=== PATIENT | male | born 1960 | race African-American/Black ===

== ENCOUNTER 2020-03-17 13:23 | Outpatient (REF) | payer MEDICAID, SELFPAY | END 2020-03-17 13:24 | disposition home or self-care (01) | LOC: HO.LAB 13:23 | PROVIDERS: Visit Provider Internal Medicine | DX: Z20.822 Contact with and (suspected) exposure to COVID-19 (principal) | CPT/HCPCS: 36415; C9803; U0003 ==

== ENCOUNTER 2020-03-31 13:35 | Outpatient (REF) | payer MEDICAID, SELFPAY | END 2020-03-31 13:36 | disposition home or self-care (01) | LOC: HO.LAB 13:35 | PROVIDERS: Visit Provider Internal Medicine | DX: Z20.822 Contact with and (suspected) exposure to COVID-19 (principal) | CPT/HCPCS: 36415; C9803; U0003 ==

== ENCOUNTER 2023-05-03 13:50 | Outpatient (REF) | payer MEDICAID, SELFPAY ==
[2023-05-03 16:42] LABS: Anion Gap 15 (12-20); Blood Urea Nitrogen 18 mg/dL (9-16); Calcium 9.4 mg/dL (8.4-10.2); Carbon Dioxide 25 mmol/L (22-29); Chloride 108 mmol/L (96-108); Estimated Glomerular Filt Rate 47; Glucose Random 94 mg/dL (60-115); Potassium 4.2 mmol/L (3.3-5.1); Sodium 144 mmol/L (135-145)
== END 2023-05-03 13:51 | disposition home or self-care (01) ==
LOC: HO.HHCL 13:50
PROVIDERS: Visit Provider General Practice
DX: N18.31 Chronic kidney disease, stage 3a (principal)
CPT/HCPCS: 36415; 80048

== ENCOUNTER 2023-06-27 13:46 | Outpatient (REF) | payer MEDICAID, SELFPAY ==
[2023-06-27 14:46] LABS: MANUAL DIFF FLAG NO
[2023-06-27 15:25] LABS: Appearance Urine Clear; Color Urine Yellow; Glucose Urine UA Negative (Negative); Leukocyte Esterase Urine Trace (Negative); Nitrite Urine Negative (Negative); PH 5.5 (5.0-9.0); Specific Gravity - Urine 1.015 (1.005-1.025); UMIC TRIGGER UA YES; Urine Blood Negative (Negative); Urine Ketones Negative (Negative); Urine Protein Negative (Neg-Trace)
[2023-06-27 15:25] LABS: Basophils Percent Auto 0.2 % (0-2); Eosinophils Percent Auto 0.5 % (0-4); Hematocrit 39.5 % (42.0-52.0); Hemoglobin 13.6 g/dl (14.0-18.0); Imm Gran Abs Auto 0.01 X10*3/uL (0.00-0.03); Imm Gran Pct Auto 0.2 % (0.0-0.4); Lymphocytes Absolute Auto 2.1 X10*3/uL (1.2-4.9); Lymphocytes Percent Auto 36.4 % (20-40); Mean Corpuscular HGB Conc 34.4 g/dl (31.0-36.0); Mean Corpuscular Hemoglobin 31.4 pg (27.0-33.0); Mean Corpuscular Volume 91.2 fL (80.0-98.0); Mean Platelet Volume 10.6 fL (9.4-12.4); Monocytes Absolute Auto 0.6 X10*3/uL (0.1-1.2); Monocytes Percent Auto 9.8 % (2-11); Neutrophils Percent Auto 52.9 % (45-73); Platelet Count 169 X10*3/uL (160-400); Red Blood Count 4.33 X10*6/uL (4.60-5.80); Red Cell Distribution Width 13.4 % (11.0-16.0); White Blood Count 5.6 X10*3/uL (4.8-10.8)
[2023-06-27 15:31] LABS: Bacteria Urine None Seen (None Seen); Hyaline Casts Urine 0-2 /LPF (0-2); RBC Urine 0-2 /HPF (0-2); Squamous Epithelial Cell Urine 0-2 /HPF (0-2); WBC Urine 0-5 /HPF (0-5)
[2023-06-27 15:58] LABS: Alanine Aminotransferase 11 U/L (0-40); Albumin Level 4.1 g/dL (3.5-5.0); Alkaline Phosphatase 70 U/L (39-117); Anion Gap 9 (12-20); Aspartate Amino Transferase 22 U/L (5-37); Bilirubin Total 0.4 mg/dL (0.0-1.0); Blood Urea Nitrogen 18 mg/dL (9-16); Calcium 9.2 mg/dL (8.4-10.2); Carbon Dioxide 26 mmol/L (22-29); Chloride 109 mmol/L (96-108); Estimated Glomerular Filt Rate > 60; Glucose Random 88 mg/dL (60-115); Potassium 3.8 mmol/L (3.3-5.1); Sodium 140 mmol/L (135-145); Total Protein 7.6 g/dL (6.5-8.0)
[2023-06-27 16:07] LABS: Creatinine Urine 82.59 mg/dL; Total Protein Urine Random < 7 mg/dL (<12)
[2023-06-27 16:14] LABS: Parathyroid Hormone Intact 135.5 pg/mL (8.7-77.1)
== END 2023-06-27 13:47 | disposition home or self-care (01) ==
LOC: HO.LAB 13:46
PROVIDERS: PCP General Practice; Visit Provider Internal Medicine Hypertension Specialist
DX: N18.30 Chronic kidney disease, stage 3 unspecified (principal); N05.9 Unspecified nephritic syndrome with unspecified morphologic changes
CPT/HCPCS: 36415; 80053; 81001; 82570; 83970; 84156; 85025; 99202

== ENCOUNTER 2023-06-27 13:47 | Outpatient (AMB) | payer MEDICAID, SELFPAY ==
[2023-06-27 13:47] VITALS: BP 130/88; PULSE 73; O2SAT 99; BMI 26.2
--- NOTE | 2023-06-27 13:47 | HO.NEPHOV_ITS ---
Vital Signs 06/27/23 13:47 Height 6 ft 3 in Weight 210 lb BMI 26.2 BP 130/88 Blood Pressure Location Rt brachial Position Sitting Pulse 73 Pulse Source Pulse Oximeter Pulse Oximetry (%) 99 Oxygen Delivery Method Room Air Intake Visit Reasons: CKD STG 3/ Confirmed Licensed Home Inspector Required: No Accompanied by: Self / Same As Patient Allergies No Known Allergies [No Known Allergies*] Allergy (Verified 06/27/23 13:48) HPI Comments Details: Iker is a 63 yr old man with a h/o Seizures- which is well controlled Recently he was found to have elevated creatinine and henc this referral No renal issues in the past No urinary symptoms No weight loss No shortness of breath No chest pain No nausea or vomiting No diarrhea No polyuria, oliguria No edema No headache No palpitations or unexplained sweating [facility] Social History (Updated 06/27/23 @ 13:49 by Noy Kwong) Patient Tobacco Use Status: Former Tobacco user Physical Exam Vital Signs: Last Vital Signs Pulse 73 06/27/23 13:47 BP 130/88 06/27/23 13:47 Pulse Ox 99 06/27/23 13:47 Oxygen Delivery Method Room Air 06/27/23 13:47 BMI result Body Mass Index 26.2 Const General: comfortable Nutritional Appearance: well nourished Orientation/consciousness: patient oriented x3 HEENT Head: No normal to inspection Mouth: moist mucous membranes Neck Neck: Yes supple and Yes no JVD Resp Auscultation: clear to auscultation bilaterally, no rales and rub present Cardio Jugular venous distension: no JVD Palpation: no palpable S3 and no palpable S4 Heart sounds: no rubs GI Palpation (GI): Soft to palpation and nontender Percussion: No Fluid wave present General: Yes no CVA tenderness Back/Spine/Pelvis Back: no CVA tenderness Skin General skin exam: no rashes or lesions noted Neuro General: patient oriented x3 Extrem General: Yes no pedal edema and No clubbing Results Reviewed Nephrology Results: Hgb 13.6 g/dl (14.0-18.0) L 06/27/23 WBC 5.6 X10*3/uL (4.8-10.8) 06/27/23 Plt Count 169 X10*3/uL (160-400) 06/27/23 Sodium 140 mmol/L (135-145) 06/27/23 Potassium 3.8 mmol/L (3.3-5.1) 06/27/23 Chloride 109 mmol/L (96-108) H 06/27/23 Carbon Dioxide 26 mmol/L (22-29) 06/27/23 BUN 18 mg/dL (9-16) H 06/27/23 Creatinine 1.12 mg/dL (0.5-1.4) 06/27/23 Calcium 9.2 mg/dL (8.4-10.2) 06/27/23 PTH Intact 135.5 pg/mL (8.7-77.1) H 06/27/23 Urine Protein Negative mg/dL (Neg-Trace) 06/27/23 Urine Creatinine 82.59 mg/dL 06/27/23 Assessment & Plan Assessment & Plan (1) CKD (chronic kidney disease): Code(s): N18.9 - Chronic kidney disease, unspecified Category: Medical Plan Middle aged man with seizure , found ot have chronic kidney disease Base line unknown He probably has a component of WHIT Work up ordered as outlined below including sonogram and urine studies Further work up will be based on these results He was reassured. All questions answered Orders: Orders Parathyroid Hormone Intact Today N18.9 - Chronic kidney disease, unspecified Total Protein Urine Random Today N18.9 - Chronic kidney disease, unspecified Creatinine Urine Today N05.9 - Unspecified nephritic syndrome with unspecified morphologic changes, N18.9 - Chronic kidney disease, unspecified Creatinine Clearance Urine 24U Today N18.9 - Chronic kidney disease, unspecified Creatinine, 24 Hr Group Today N18.9 - Chronic kidney disease, unspecified Complete Blood Count Auto Diff Today N18.30 - Chronic kidney disease, stage 3 unspecified, N18.9 - Chronic kidney disease, unspecified Comprehensive Met. Panel Today N18.9 - Chronic kidney disease, unspecified UA and rflx microscopic Today N18.9 - Chronic kidney disease, unspecified US renal BI Today N18.9 - Chronic kidney disease, unspecified Coding Level of Care Code New Pt Level 4 (86932) Diagnoses CKD (chronic kidney disease) N18.9
== END 2023-06-27 14:05 | disposition home or self-care (01) ==
PROVIDERS: PCP General Practice; Referring Provider General Practice; Visit Provider Internal Medicine Hypertension Specialist
DX: N18.9 Chronic kidney disease, unspecified (principal)
CPT/HCPCS: 99204

== ENCOUNTER 2023-07-02 10:46 | Outpatient (REF) | payer MEDICAID, SELFPAY ==
[2023-07-02 12:41] LABS: Creatinine, mg/dL 57.92; Creatinine, mg/dL 58.87
[2023-07-02 12:43] LABS: Estimated Glomerular Filt Rate 59
[2023-07-02 13:44] LABS: Creatinine, 24Hr Urine 1.3 G/Day (1.0-2.0); Total Volume 24 Hour Urine 2250 mL
[2023-07-02 13:45] LABS: Creatinine, 24Hr Urine 1.3 G/Day (1.0-2.0); Total Volume 24 Hour Urine 2250 mL
[2023-07-02 17:41] LABS: Creatinine (CrCl) 1.24 mg/dL (0.5-1.4); Creatinine Clearance 74.1 mL/min (85-125)
== END 2023-07-02 10:47 | disposition home or self-care (01) ==
LOC: HO.LAB 10:46
PROVIDERS: PCP General Practice; Visit Provider Internal Medicine Hypertension Specialist
DX: N18.9 Chronic kidney disease, unspecified (principal)
CPT/HCPCS: 36415; 82565; 82570; 82575

== ENCOUNTER 2023-07-10 11:43 | Outpatient (REF) | payer MEDICAID, SELFPAY ==
--- NOTE | ~2023-07-10 | US_ITS ---
EXAMINATION: US RETROPERITONEAL LIMITED (RENAL ONLY) CLINICAL INFORMATION: Chronic kidney disease, unspecified. COMPARISON: CT abdomen and pelvis 02/28/2017. TECHNIQUE: Real-time imaging of the kidneys. Limited visualization due to bowel gas. FINDINGS: RIGHT KIDNEY: 11.5 x 5.1 x 6.4 cm (SAG x AP x TRV). Tiny echogenic foci scattered throughout the kidney, possibly representing tiny nonobstructive calculi. No hydronephrosis. Renal cortical thickness is normal. Limited visualization. LEFT KIDNEY: 11.2 x 5.7 x 4.4 cm (SAG x AP x TRV). Tiny echogenic foci scattered throughout the kidney, possibly representing tiny nonobstructive calculi. No hydronephrosis. Renal cortical thickness is normal. Limited visualization. US/US renal BI IMPRESSION: Tiny echogenic foci scattered throughout the kidneys, possibly representing tiny nonobstructive calculi. No hydronephrosis.
== END 2023-07-10 11:44 | disposition home or self-care (01) ==
LOC: HO.US 11:43
PROVIDERS: PCP General Practice; Visit Provider Internal Medicine Hypertension Specialist
DX: N18.9 Chronic kidney disease, unspecified (principal)
CPT/HCPCS: 76775

== ENCOUNTER 2023-07-18 13:55 | Outpatient (AMB) | payer MEDICAID, SELFPAY ==
[2023-07-18 13:57] VITALS: BP 116/70; PULSE 65; O2SAT 98; BMI 26.5
--- NOTE | 2023-07-18 13:57 | HO.NEPHOV ---
Vital Signs 07/18/23 13:57 Height 6 ft 3 in Weight 212 lb BMI 26.5 BP 116/70 Blood Pressure Location Rt brachial Position Sitting Pulse 65 Pulse Source Pulse Oximeter Pulse Oximetry (%) 98 Oxygen Delivery Method Room Air Intake Visit Reasons: CKD / 3 weeks fu/ Confirmed Direct Marketing Analyst Required: No Accompanied by: Self / Same As Patient Allergies No Known Allergies [No Known Allergies*] Allergy (Verified 07/18/23 14:00) HPI Comments Details: Iker is a 63 yr old man with a h/o Seizures- which is well controlled Recently he was found to have elevated creatinine and henc this referral No renal issues in the past No urinary symptoms No weight loss No shortness of breath No chest pain No nausea or vomiting No diarrhea No polyuria, oliguria No edema No headache No palpitations or unexplained sweating PFSH Social History Patient Tobacco Use Status: Former Tobacco user Physical Exam Vital Signs: Last Vital Signs Pulse 65 07/18/23 13:57 BP 116/70 07/18/23 13:57 Pulse Ox 98 07/18/23 13:57 Oxygen Delivery Method Room Air 07/18/23 13:57 BMI result Body Mass Index 26.5 Const General: comfortable Nutritional Appearance: well nourished Orientation/consciousness: patient oriented x3 HEENT Head: No normal to inspection Mouth: moist mucous membranes Neck Neck: Yes supple and Yes no JVD Resp Auscultation: clear to auscultation bilaterally, no rales and rub present Cardio Jugular venous distension: no JVD Palpation: no palpable S3 and no palpable S4 Heart sounds: no rubs GI Palpation (GI): Soft to palpation and nontender Percussion: No Fluid wave present General: Yes no CVA tenderness Back/Spine/Pelvis Back: no CVA tenderness Skin General skin exam: no rashes or lesions noted Neuro General: patient oriented x3 Extrem General: Yes no pedal edema and No clubbing Results Reviewed Results Reviewed: RIGHT KIDNEY: 11.5 x 5.1 x 6.4 cm (SAG x AP x TRV). Tiny echogenic foci scattered throughout the kidney, possibly representing tiny nonobstructive calculi. No hydronephrosis. Renal cortical thickness is normal. Limited visualization. LEFT KIDNEY: 11.2 x 5.7 x 4.4 cm (SAG x AP x TRV). Tiny echogenic foci scattered throughout the kidney, possibly representing tiny nonobstructive calculi. No hydronephrosis. Renal cortical thickness is normal. Limited visualization. US/US renal BI IMPRESSION: Tiny echogenic foci scattered throughout the kidneys, possibly representing tiny nonobstructive calculi. No hydronephrosis. Nephrology Results: Hgb 13.6 g/dl (14.0-18.0) L 06/27/23 WBC 5.6 X10*3/uL (4.8-10.8) 06/27/23 Plt Count 169 X10*3/uL (160-400) 06/27/23 Sodium 140 mmol/L (135-145) 06/27/23 Potassium 3.8 mmol/L (3.3-5.1) 06/27/23 Chloride 109 mmol/L (96-108) H 06/27/23 Carbon Dioxide 26 mmol/L (22-29) 06/27/23 BUN 18 mg/dL (9-16) H 06/27/23 Creatinine 1.24 mg/dL (0.5-1.4) 07/02/23 Calcium 9.2 mg/dL (8.4-10.2) 06/27/23 PTH Intact 135.5 pg/mL (8.7-77.1) H 06/27/23 Urine Protein Negative mg/dL (Neg-Trace) 06/27/23 Urine Creatinine 82.59 mg/dL 06/27/23 Renal US 07/10/23 Assessment & Plan Assessment & Plan (1) CKD (chronic kidney disease): Code(s): N18.9 - Chronic kidney disease, unspecified Category: Medical Plan Middle aged man with seizure , found ot have chronic kidney disease Base line creatinine is probably around 1.2 mg/dL as of 2018. Creatinine bumped up to 1.5 in May of 2023 and promptly returned to 1.2. Exactly etiology for this bump is unclear. Urinalysis was benign. No protein or RBCs. Twenty-four urine collection showed a volume of 2250 cc. Creatinine clearance was 75 mL/minute. At this point renal function is at baseline. He does not need any further investigations. Encouraged him to increase fluid intake. Sonogram showed tiny calcifications No hydronephrosis He should stay on low-sodium diet and keep his urine output more than 2 L by increasing fluid intake. Orders: Orders Basic Metabolic Panel 11 Months N18.9 - Chronic kidney disease, unspecified Creatinine Urine 11 Months N05.9 - Unspecified nephritic syndrome with unspecified morphologic changes, N18.9 - Chronic kidney disease, unspecified Total Protein Urine Random 11 Months N18.9 - Chronic kidney disease, unspecified UA and rflx microscopic 11 Months N18.9 - Chronic kidney disease, unspecified Coding Level of Care Code Est Pt Level 4 (27955) Diagnoses CKD (chronic kidney disease) N18.9
== END 2023-07-18 14:19 | disposition home or self-care (01) ==
PROVIDERS: PCP General Practice; Referring Provider General Practice; Visit Provider Internal Medicine Hypertension Specialist
DX: N18.9 Chronic kidney disease, unspecified (principal)
CPT/HCPCS: 99214

== ENCOUNTER → 2023-07-18 13:55 | Outpatient (BNVA) | payer MEDICAID, SELFPAY | PROVIDERS: PCP General Practice; Visit Provider Internal Medicine Hypertension Specialist | DX: N18.9 Chronic kidney disease, unspecified (principal) | CPT/HCPCS: 99212 ==

== ENCOUNTER 2023-08-26 18:38 | Outpatient (REF) | payer MEDICAID, SELFPAY ==
[2023-08-26 19:06] LABS: Appearance Urine Cloudy; Color Urine Yellow; Glucose Urine UA Negative (Negative); Leukocyte Esterase Urine Large (3+) (Negative); Nitrite Urine Negative (Negative); UMIC TRIGGER UACC YES; Urine Blood Trace (Negative); Urine Ketones Negative (Negative); Urine Protein Negative (Neg-Trace)
[2023-08-26 19:17] LABS: Bacteria Urine None Seen (None Seen); Hyaline Casts Urine 0-2 /LPF (0-2); Squamous Epithelial Cell Urine 0-2 /HPF (0-2); UACC Culture Trigger YES; WBC Urine >50 /HPF (0-5)
== END 2023-08-26 18:39 | disposition home or self-care (01) ==
LOC: HO.HHCLNP 18:38
PROVIDERS: Visit Provider Internal Medicine Geriatric Medicine
DX: R30.0 Dysuria (principal); R39.9 Unspecified symptoms and signs involving the genitourinary system; N36.8 Other specified disorders of urethra
CPT/HCPCS: 81001; 87086

== ENCOUNTER 2023-08-28 11:00 | Outpatient (REF) | payer MEDICAID, SELFPAY ==
[2023-08-28 15:01] LABS: CT PCR NOT DETECTED (Not Detect.); NG PCR DETECTED (Not Detect.)
== END 2023-08-28 11:01 | disposition home or self-care (01) ==
LOC: HO.HHCL 11:00
PROVIDERS: Visit Provider Internal Medicine Geriatric Medicine
DX: R39.9 Unspecified symptoms and signs involving the genitourinary system (principal); R30.0 Dysuria; N36.8 Other specified disorders of urethra
CPT/HCPCS: 87491; 87591

== ENCOUNTER 2024-08-08 10:38 | Emergency (ER) | payer MEDICAID, SELFPAY ==
--- NOTE | ~2024-08-08 | US_ITS ---
CLINICAL HISTORY: infection abscess US Scrotum with Doppler Comparison: None Findings: Right testicle normal echotexture, 5.2 x 2.0 x 3.3 cm. Right appendix testes measuring 4 x 4 mm. Left testicle normal echotexture, 5.0 x 2.1 x 3.4 cm. Color Doppler and arterial/venous spectral tracings of both testicles within normal limits. Bilateral epididymal head cysts measuring 4-5 mm. Epididymides are otherwise unremarkable. No hydroceles or varicoceles. Subcutaneous hyperemic area in the perineal region without discrete drainable fluid collection may be cellulitis or phlegmon. IMPRESSION: Subcutaneous hyperemic area in the perineal region without discrete drainable fluid collection may be cellulitis or phlegmon. This document has been electronically signed by: Andrew Carrasquillo MD on 08/08/2024 21:13:07
--- NOTE | 2024-08-08 11:48 | ED.SKABFB ---
HPI - Skin/Abscess/Foreign Bdy General Chief complaint: Skin/Abscess/Foreign Body Stated complaint: BUMP ON INNNER THIGH Time Seen by Provider: 08/08/24 18:33 Source: patient Limitations: no limitations History of Present Illness ED Provider: Linn Alfaro PA-C HPI narrative: 64-year-old male with a history of seizure disorder on Keppra, chronic kidney disease who presents with painful swelling over scrotum times 2-3 days. Patient thinks he had an ingrown hair, he has since developed swelling, increased tenderness and purulent drainage from the site. Denies fever. Denies dysuria, hematuria, penile discharge or risk for STD. Related Data Home Medications ?Medication ?Instructions ?Recorded ?Confirmed acetaminophen 500 mg oral powder 500 mg PO Q6H PRN 06/25/23 packet (Tylenol Extra Strength) levetiracetam 1,000 mg tablet 1,000 mg PO BID 06/25/23 sildenafil 100 mg tablet 100 mg PO DAILY PRN 06/25/23 Previous Rx's ?Medication ?Instructions ?Recorded doxycycline hyclate 100 mg capsule 100 mg PO BID #14 caps 08/08/24 Allergies Allergy/AdvReac Type Severity Reaction Status Date / Time No Known Allergies Allergy Verified 08/08/24 11:51 [No Known Allergies*] Review of Systems Review of Systems: Yes all other systems are reviewed and are negative Constitutional: Constitutional: Denies fatigue and Denies fever(s) Genitourinary: Genitourinary: Denies hematuria, Reports genital lesions, Reports genital pain, Denies dysuria, Denies penile discharge, Reports scrotal swelling, Denies testicular mass and Denies testicular pain Endocrine: Endocrine: Denies fatigue [facility] Past Medical History Attestation statement: The following information was validated with the patient. Social History Social History Patient Tobacco Use Status: Former Tobacco user Smoked in Last 30 Days: No Use of substances other than those prescribed or required for medical reasons: No Advance Directives: No Advance Directives Information Provided: No Physical Exam Vital Signs: Vital Signs: Last Vital Signs Temp 99.0 F 08/08/24 22:23 Pulse 71 08/08/24 22:23 Resp 16 08/08/24 22:23 BP 138/85 08/08/24 22:23 Pulse Ox 95 08/08/24 22:23 O2 Del Method Room Air 08/08/24 22:23 BMI result Body Mass Index 24.9 Const: Other: Alert well-appearing Orientation/consciousness: patient oriented x3 Resp: Effort & Inspection: normal respiratory effort Cardio: Other: Normal peripheral perfusion : Other: Indurated swelling noted over inferior scrotum, area of fluctuance with purulent drainage, the induration extends somewhat into the perineum Skin: Other: Warm dry no rash Neuro: General: patient oriented x3, gait normal, no focal motor deficits and CN's II-XI intact bilaterally Psych: Other: Cooperative Course Course Course Narrative: This is a Rapid Medical Exam performed in triage by Hodan Torres PA-C. Full HPI, ROS and PE to be performed by primary ED provider. 64 yo M w/pmhx seizures presenting to the ED vis EMS c/o 2 painful lumps under scrotum x2 days w/pus & bloody drainage. denies issues urinating/BMs PE: Area not evaluated in triage Plan: UA Consultations Consultation #1: per Dr. Brasher .... Place patient on oral antibiotics for 1 week and have him follow up in the office Time: 22:07 Medications Administered Discontinued Medications Generic Name Dose Route Start Last Admin Trade Name Freq PRN Reason Stop Dose Admin Vancomycin HCl 1,500 mg/ 500 mls @ 333.333 mls/hr 08/08/24 18:56 08/08/24 20:45 Sodium Chloride IV 08/08/24 20:25 Infused ONCE ONE Infusion Morphine Sulfate 4 mg 08/08/24 18:57 08/08/24 19:13 Morphine Sulfate 4 Mg/Ml Cartridge IVPUSH 08/08/24 18:58 4 mg ONCE ONE Administration Protocol Medical Decision Making Medical Decision Making MDM Narrative: 64-year-old male with a history of seizure disorder on Keppra, chronic kidney disease who presents with painful swelling over scrotum times 2-3 days. Patient thinks he had an ingrown hair, he has since developed swelling, increased tenderness and purulent drainage from the site. Denies fever. Denies dysuria, hematuria, penile discharge or risk for STD. Problem: Seizure disorder, chronic kidney disease History: Per patient I have considered the following differential diagnoses: Torsion, epididymitis, orchitis, scrotal cellulitis versus abscess, Angeline gangrene Plan: I am concerned for abscess formation, I am not concerned for Angeline gangrene, the infection is isolated, the patient is stable and afebrile. We will be obtaining an ultrasound of the scrotal contents. Urinalysis already obtained, there was no infection, we will add on screening labs, including blood cultures and lactic, starting empiric vancomycin, giving morphine for pain. Likely not orchitis or epididymitis, he has no testicular pain, the pain is exclusive to the inferior scrotum. I have independently reviewed the following tests: Labs: No leukocytosis, not anemic, no electrolyte abnormality, kidney function at baseline, urine not infected, lactic 1.1 scrotal US: IMPRESSION: Subcutaneous hyperemic area in the perineal region without discrete drainable fluid collection may be cellulitis or phlegmon. Lab Data 08/08/24 19:05 08/08/24 19:05 Labs: Lab Results 08/08/24 08/08/24 Range/Units 15:30 19:05 WBC 9.7 (4.8-10.8) X10*3/uL RBC 4.16 L (4.60-5.80) X10*6/uL Hgb 13.2 L (14.0-18.0) g/dl Hct 37.8 L (42.0-52.0) % MCV 90.9 (80.0-98.0) fL MCH 31.7 (27.0-33.0) pg MCHC 34.9 (31.0-36.0) g/dl RDW 13.4 (11.0-16.0) % Plt Count 171 (160-400) X10*3/uL MPV 10.0 (9.4-12.4) fL Immature Gran % (Auto) 0.2 (0.0-0.4) % Neut % (Auto) 70.3 (45-73) % Lymph % (Auto) 18.7 L (20-40) % [place] % (Auto) 10.6 (2-11) % Eos % (Auto) 0.1 (0-4) % Baso % (Auto) 0.1 (0-2) % Lymph # (Auto) 1.8 (1.2-4.9) X10*3/uL [place] # (Auto) 1.0 (0.1-1.2) X10*3/uL Eos # (Auto) 0.0 (0.0-0.4) X10*3/uL Baso # (Auto) 0.0 (0.0-0.2) X10*3/uL Abs Immat Gran (auto) 0.02 (0.00-0.03) X10*3/uL Absolute Neuts (auto) 6.8 (2.0-8.3) x10*3/uL Absolute Nucleated RBC 0.000 (0.0-0.012) X10*3/uL Nucleated RBC % (auto) 0.0 (0.0-0.2) /100WBC ESR 30 H (0-15) MM/HR Sodium 142 (135-145) mmol/L Potassium 3.9 (3.3-5.1) mmol/L Chloride 108 (96-108) mmol/L Carbon Dioxide 25 (22-29) mmol/L Anion Gap 13 (12-20) BUN 16 (9-16) mg/dL Creatinine 1.24 (0.5-1.4) mg/dL Estim Creat Clear Calc 71.9 Estimated GFR 59 Random Glucose 92 (60-115) mg/dL Lactic Acid 1.1 (0.5-2.0) mmol/L Calcium 9.2 (8.4-10.2) mg/dL Magnesium 1.9 (1.6-2.6) mg/dL C-Reactive Protein 2.90 H (< or = 0.50) mg/dL Urine Color Yellow Urine Appearance Clear Urine pH 6.0 (5.0-9.0) Ur Specific [place] 1.015 (1.005-1.025) Urine Protein Negative (Neg-Trace) mg/dL Urine Glucose (UA) Negative (Negative) mg/dL Urine Ketones Negative (Negative) mg/dL Urine Blood Negative (Negative) Urine Nitrite Negative (Negative) Ur Leukocyte Esterase Trace H (Negative) Urine RBC 0-2 (0-2) /HPF Urine WBC 0-5 (0-5) /HPF Ur Squamous Epith Cells 0-2 (0-2) /HPF Urine Bacteria None Seen (None Seen) Hyaline Casts 0-2 (0-2) /LPF Discharge Plan Discharge Clinical Impression: Abscess, scrotum Patient Disposition: Home, Self-Care Additional Instructions: You are being treated for a scrotal abscess. See home care instructions. Apply warm compresses to the site several times a day. Take the doxycycline as directed, this is an antibiotic to treat the infection. I am providing you with a contact for our urologist, call the office Saturday to schedule an appointment. Prescriptions: New doxycycline hyclate 100 mg capsule 100 mg PO BID Qty: 14 0RF No Action levetiracetam 1,000 mg tablet 1,000 mg PO BID Tylenol Extra Strength 500 mg powder in packet 500 mg PO Q6H PRN sildenafil 100 mg tablet 100 mg PO DAILY PRN Rx Instructions: administer 30 minutes to 4 hours before activity Referrals: Zafar Brasher MD [Physician] - (scrotal phlegmon, to be seen in 1 week per your recommendation) Print Language: Vietnamese
[2024-08-08 11:49] VITALS: BP 147/83; PULSE 78; RESP 18; TEMP 36.7; O2SAT 100; BMI 24.9
[2024-08-08 15:44] LABS: Appearance Urine Clear; Color Urine Yellow; Glucose Urine UA Negative (Negative); Leukocyte Esterase Urine Trace (Negative); Nitrite Urine Negative (Negative); Specific Gravity - Urine 1.015 (1.005-1.025); UMIC TRIGGER UACC YES; Urine Blood Negative (Negative); Urine Ketones Negative (Negative); Urine Protein Negative (Neg-Trace)
[2024-08-08 15:49] LABS: Bacteria Urine None Seen (None Seen); Hyaline Casts Urine 0-2 /LPF (0-2); RBC Urine 0-2 /HPF (0-2); Squamous Epithelial Cell Urine 0-2 /HPF (0-2); WBC Urine 0-5 /HPF (0-5)
[2024-08-08 18:18] VITALS: BP 148/66; PULSE 83; RESP 16; TEMP 36.6; O2SAT 98
[2024-08-08 18:32] VITALS: BP 155/90; PULSE 77; RESP 14; O2SAT 97
--- NOTE | 2024-08-08 18:52 | PC.NURSE ---
Patient A&O x 3. Patient presented to ED c/o abscess in perineal area. PAin rated 4/10 non radiating. Abscess started 2 days ago. Denies Fever/chills, Denies SOB. Abscess area has small opening, patient confirmed squeezing area to try and get pus out . Hardened areas below perinium that travel to left buttock. Provider in to see patient. Blood collected/sent. Plan of care on going.
[2024-08-08] MEDS: Morphine Sulfate 4 MG/ML CARTRIDGE IVPUSH (19:13)
[2024-08-08] MEDS: vancomycin HCL 1,500 MG in 0.9 % Sodium Chloride 500 ML 333.33 MG IV (19:14)
[2024-08-08 19:15] LABS: MANUAL DIFF FLAG NO
[2024-08-08 19:17] LABS: Basophils Percent Auto 0.1 % (0-2); Eosinophils Percent Auto 0.1 % (0-4); Hematocrit 37.8 % (42.0-52.0); Hemoglobin 13.2 g/dl (14.0-18.0); Imm Gran Abs Auto 0.02 X10*3/uL (0.00-0.03); Imm Gran Pct Auto 0.2 % (0.0-0.4); Lymphocytes Absolute Auto 1.8 X10*3/uL (1.2-4.9); Lymphocytes Percent Auto 18.7 % (20-40); Mean Corpuscular HGB Conc 34.9 g/dl (31.0-36.0); Mean Corpuscular Hemoglobin 31.7 pg (27.0-33.0); Mean Corpuscular Volume 90.9 fL (80.0-98.0); Monocytes Percent Auto 10.6 % (2-11); Neutrophils Absolute Auto 6.8 x10*3/uL (2.0-8.3); Neutrophils Percent Auto 70.3 % (45-73); Platelet Count 171 X10*3/uL (160-400); Red Blood Count 4.16 X10*6/uL (4.60-5.80); Red Cell Distribution Width 13.4 % (11.0-16.0); White Blood Count 9.7 X10*3/uL (4.8-10.8)
[2024-08-08 19:30] LABS: Anion Gap 13 (12-20); Blood Urea Nitrogen 16 mg/dL (9-16); Calcium 9.2 mg/dL (8.4-10.2); Carbon Dioxide 25 mmol/L (22-29); Chloride 108 mmol/L (96-108); Creatinine Clr Calc Pharmacy 71.9; Estimated Glomerular Filt Rate 59; Glucose Random 92 mg/dL (60-115); Magnesium 1.9 mg/dL (1.6-2.6); Potassium 3.9 mmol/L (3.3-5.1); Sodium 142 mmol/L (135-145)
[2024-08-08 19:31] LABS: Lactic Acid 1.1 mmol/L (0.5-2.0)
--- NOTE | 2024-08-08 19:31 | PC.NURSE ---
20gIV placed in the right AC - labs/cultures obtained/sent to lab. medication administered per provider order. pt waiting for US to be completed at this time. plan of care ongoing. call leon placed within reach.
[2024-08-08 19:53] LABS: Erythrocyte Sedimentation Rate 30 MM/HR (0-15)
[2024-08-08 22:23] VITALS: BP 138/85; PULSE 71; RESP 16; TEMP 37.2; O2SAT 95
[2024-08-08 23:34] VITALS: BP 138/85; PULSE 71; RESP 16; TEMP 37.2; O2SAT 95
--- NOTE | 2024-08-08 23:34 | PC.NURSE ---
transportation home arranged by [employer] house operator. [place] [facility] [place] [facility] at this time.
== END 2024-08-08 23:34 | disposition home or self-care (01) ==
PROVIDERS: Physician Assistant; Physician Assistant Medical; Emergency Provider Emergency Medicine
DX: N49.2 Inflammatory disorders of scrotum (principal); G40.909 Epilepsy, unspecified, not intractable, without status epilepticus; N18.9 Chronic kidney disease, unspecified; Z79.899 Other long term (current) drug therapy
CPT/HCPCS: 36415; 76870; 80048; 81001; 83605; 83735; 85025; 85652; 86140; 87040; 93975; 96365; 96366; 96375; 99284; J2270; J3371

== ENCOUNTER → 2024-08-08 18:55 | Outpatient (BNV) | payer MEDICAID, SELFPAY | PROVIDERS: Emergency Provider Emergency Medicine; Visit Provider Radiology Diagnostic Radiology | DX: R22.9 Localized swelling, mass and lump, unspecified (principal) | CPT/HCPCS: 93975 ==

== ENCOUNTER 2024-09-09 10:00 | Outpatient (AMB) | payer MEDICAID, SELFPAY ==
--- NOTE | 2024-09-09 10:12 | A.OFFVIS_ITS ---
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 A doxycycline had been given. 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 Incision and drainage performed in office as described below Will be treated with 14 days doxycycline 1 month follow-up office [facility] Social History Patient Tobacco Use Status: Former Tobacco user Review of Systems Const Denies chills and Denies fever(s) Card Reports no additional complaints and Denies syncope Resp Denies cough GI Denies abdominal pain and Denies heartburn Reports as per HPI and Denies change in libido Neuro Denies syncope Psych Denies change in libido Endo Denies change in libido Physical Exam Const General: cooperative, healthy appearing, comfortable and no acute distress Orientation/consciousness: patient oriented x3 HEENT Face and sinus: Yes normal facial exam Mouth: moist mucous membranes Neck Neck: Yes normal visual inspection, Yes full ROM and Yes trachea midline Chest Chest palpation & inspection: normal inspection of the chest Resp Effort & Inspection: normal respiratory effort, able to speak in complete sentences and no respiratory distress GI Inspection: Yes normal to inspection Back/Spine/Pelvis Cervical Spine: normal cervical lordosis Thoracic/Lumbar Spine: thoracic and lumbar spine normal to inspection Skin General skin exam: no rashes or lesions noted Neuro General: patient oriented x3, gait normal, tone normal and moves all extremities Extrem General: Yes normal to inspection and Yes capillary refill normal Office Procedures I&D Drain Details: Incision and Drainage Scrotal Wall abcess Preparation with iodine swab 4 cc of 0.5% bupivacaine infiltrated over abscess Incision made with 11 blade Abscess drained Iodine swab inserted into incision and cavity cleaned Dressing provided All charges added?: Additional procedure code (CPT) needed (98625) Office Meds lidocaine 1 %-epinephrine 1:100,000 injection solution Performing Provider: Zafar Brasher MD [facility] Administered by: Zafar Brasher MD on 09/09/24 11:00 Dose Route Admin Location Dispensed Lot Number Expiration Date NDC Watch And Clock Maker And Repairer 5 mL subcut 10 mL Total Dispensed Waste 10 mL 0 % Results AMB Urinalysis, Automated UA Leukoctes 0 Homer/uL Last Edit by LIYA Salcido on 09/09/24 10:26 UA Nitrite Negative Last Edit by LIYA Salcido on 09/09/24 10:26 UA Urobilinogen 3.5 mg/dL Last Edit by LIYA Salcido on 09/09/24 10:2 6 UA Protein 15 mg/dL Last Edit by LIYA Salcido on 09/09/24 10:26 UA pH 6.0 Last Edit by Mora Foreman [facility] on 09/09/24 10:26 UA Blood 0 Romeo/uL Last Edit by Mora Foreman CCM on 09/09/24 10:26 UA Specific [place] 1.020 Last Edit by LIYA Salcido on 09/09/24 10: 26 UA Ketone Negative Last Edit by LIYA Salcido on 09/09/24 10:26 UA Bilirubin 0 mg/dL Last Edit by Mora Foreman CCM on 09/09/24 10:26 UA Glucose 0 mg/dL Last Edit by Mora Foreman [facility] on 09/09/24 10:26 Results Reviewed Results Reviewed: Laboratory Last Values Urine pH (Auto) 6.0 09/09/24 10:25 Specific [place] (Auto) 1.020 09/09/24 10:25 Urine Protein (Auto) 15 mg/dL 09/09/24 10:25 Glucose (UA)(Auto) 0 mg/dL 09/09/24 10:25 Urine Ketones (Auto) Negative 09/09/24 10:25 Urine Blood (Auto) 0 Romeo/uL 09/09/24 10:25 Urine Nitrite (Auto) Negative 09/09/24 10:25 Urine Bilirubin (Auto) 0 mg/dL 09/09/24 10:25 Urine Urobilinogen (Auto) 3.5 mg/dL 09/09/24 10:25 Leukocyte Esterase (Auto) 0 Homer/uL 09/09/24 10:25 Assessment & Plan Assessment & Plan (1) Abscess, scrotum: Code(s): N49.2 - Inflammatory disorders of scrotum Category: Medical Plan Antibiotics One month follow-up Orders: Orders AMB Urinalysis Automated Today Z13.9 - Encounter for screening, unspecified AMB Incision & Drainage Today N49.2 - Inflammatory disorders of scrotum Medications: New doxycycline hyclate 100 mg PO BID 28 tabs 0RF 14 days N39.0 - Urinary tract infection, site not specified, N45.1 - Epididymitis, N49.2 - Inflammatory disorders of scrotum Patient Instructions: This note is constructed using voice recognition software. While every effort has been made to ensure accuracy can labeler errors may have been included. Imaging studies, laboratory and physical exam results were discussed and reviewed in detail. No major barriers to patient understanding were identified. An opportunity to ask questions regarding the treatment plan was provided. All questions were answered. The patient expressed understanding and agreement with the above treatment plan. The patient is aware they should contact our office by phone for worsening of their current condition or the appearance of new urologic symptoms. Compliance is encouraged with any medications and followup testing that is ordered. It is a privilege to participate in the urologic care of your patient. If you have any questions or concerns regarding treatment for the above conditions, or other urologic issues, please do not hesitate to contact me. The office telephone contact is [phone]. Sincerely, Dr Zafar Brasher MD, [facility] - Urology Compassionate Specialist Care for the Genitourinary System Coding Level of Care Code New Pt Level 4 (90003) Diagnoses Abscess, scrotum N49.2
--- OUTSIDE RECORDS SUMMARY | 2024-09-09 10:42 | XMS_ITS | Encounter Summary ---
Author Organization [facility] Address [address] [place] [address] Care Team Providers Care Lead Rider Name Role Phone Kendra Riddle MD Primary Care Provider [phone] Encounter Details Date Type Department Care Team (Latest Contact Info) Description 10/25/2021 Abstract [facility] CONVERSIONS Dental, Provider, DDS Social History Tobacco Use Types Packs/Day Years Used Date Smoking Tobacco: Never Assessed Sex and Gender Information Value Date Recorded Sex Assigned at Male 01/01/2022 10:14 AM EDT Legal Sex Male 10:14 AM EDT Gender Identity Male 01/01/2022 10:14 AM EDT Sexual Orientation Choose not to disclose 2021 10:14 AM EDT documented as of this encounter Plan of Treatment Not on file documented as of this encounter Visit Diagnoses Not on filedocumented in this encounter Care Teams Lead Rider Relationship Specialty Start Date End Date Kendra Riddle MD [address] [place] [address] PCP - General Family Medicine 01/07/20 documented as of this encounter
--- OUTSIDE RECORDS SUMMARY | 2024-09-09 10:42 | XMS_ITS | Clinical Summary ---
Author Organization [facility] Address [address] [place] [address] Care Team Providers Care Bookmaker'S Clerk Name Role Phone Unavailable Primary Care Provider Unavailabl e Social History Tobacco Use Types Packs/Day Years Used Date Smoking Tobacco: Never Assessed Sex and Gender Information Value Date Recorded Sex Assigned at Not on file Legal Sex Male 3:01 PM EST Gender Identity Not on file Sexual Orientation Not on file Plan of Treatment Health Maintenance Due Date Last Done Comments DTaP,Tdap,and Td Vaccines (1 - Tdap) 05/15/1979 Pneumococcal Vaccine: 50+ Ye ars (1 of 1 - PCV) 2010 Zoster Vaccines (1 of 2) 2010 Cholesterol Screening (Lipid Panel) 01/31/2022 Colorectal Cancer Screening: Colonoscopy 01/31/2022 Depression Screening 01/31/2022 HIV Screening 01/31/2022 Hepatitis C Screening 01/31/2022 Social Influencers of Health Screening 01/31/2022 COVID-19 Vaccine (1 - 2023-2 5 season) 2023 Influenza Vaccine (#1) 2024 RSV Immunization Adult Patie nts (1 - 1-dose 75+ series) 05/15/2035 HIB Vaccines Aged Out No longer eligi ble based on patient's age to complete this topic HPV Vaccines Aged Out No longer eligi ble based on patient's age to complete this topic Hepatitis A Vaccines Aged Out No long er eligible based on patient's age to complete this topic Hepatitis B Vaccines Aged Out No long er eligible based on patient's age to complete this topic IPV Vaccines Aged Out No longer eligi ble based on patient's age to complete this topic MMR Vaccines Aged Out No longer eligi ble based on patient's age to complete this topic Meningococcal ACWY Vaccine Aged Out N o longer eligible based on patient's age to complete this topic Meningococcal B Vaccine Aged Out No l onger eligible based on patient's age to complete this topic Pneumococcal Vaccine: Pediat rics (0 to 5 Years) and At-Risk Patients (6 to 49 Years) Aged Out No longer eligible b ased on patient's age to complete this topic RSV Immunization Patients Un candice 20 months Aged Out No longer eligible b ased on patient's age to complete this topic Varicella Vaccines Aged Out No longer eligible based on patient's age to complete this topic
--- OUTSIDE RECORDS SUMMARY | 2024-09-09 10:42 | XMS_ITS | Patient Health Record ---
Author Organization [facility] Address [address] [place], [place] [id number] Care Team Providers Care Patient Assistant Name Role Phone [facility], Medical Services Primary Care Provider Stormy vailable [facility], Nursing Unavailable [phone] Allergies No Known Allergies Reason For Referral No Information Medications Medication SIG (Take, Route, Fr equency, Duration) Notes Start Date End Date Status ibuprofen 600 mg 1 tab(s) orally ever y 6 hours for 5 days 09/14/2021 Active acetaminophen 500 mg 1 tab(s) orally fernando ry 6 hours for 5 days 09/14/2021 Active amoxicillin 875 mg 1 tab(s) orally ever y 12 hours for 7 day(s) 09/14/2021 Active levETIRAcetam Active Problems Problem Type SNOMED Code ICD Code Onset Dates Problem Status W/U Status Risk Notes Problem Altered mental status, unspecified (R41.82) Active confirmed Problem Seizure (57578428) Unspecified convulsions (R56.9) Active confirmed Problem Homelessness (14255355) Homelessness (Z59.0) Active confirmed Plan Of Treatment No Information Insurance Providers Payer Name Payer Address Payer Phone Subscriber Number Group Number Insured Name Patient Relationship to Insured Coverage Start Date Coverage End Date ID Medicaid C3 [address] [place], [place] [id number] Iker Lewis Self - patient is the insured [employer] [address] [place] [address] [id number] Iker Lewis Self - patient is the insured 5 Medical (General) History Medical History History ICD Code Hx of seizures
== END 2024-09-09 11:22 | disposition home or self-care (01) ==
LOC: HO.HUSH 10:01
PROVIDERS: PCP General Practice; Visit Provider Urology
DX: N49.2 Inflammatory disorders of scrotum (principal); Z13.9 Encounter for screening, unspecified
CPT/HCPCS: 99204

== ENCOUNTER → 2024-09-09 10:00 | Outpatient (BNVA) | payer MEDICAID, SELFPAY | PROVIDERS: PCP General Practice; Visit Provider Urology | DX: N49.2 Inflammatory disorders of scrotum (principal) | CPT/HCPCS: 81003; 99202; J2004 ==